=== PATIENT | male | born 1955 | race Caucasian/White ===

== ENCOUNTER → 2017-11-30 | Outpatient (CLI) | payer OTHER | LOC: CLAB 11:34 → EDSTATUS 11:47 → CIMAGING 11:47 | PROVIDERS: ATTEND Family Medicine | DX: M54.5 Low back pain (principal); M51.36 Other intervertebral disc degeneration, lumbar region | CPT/HCPCS: 72100-PO ==

== ENCOUNTER → 2018-01-23 | Outpatient (CLI) | payer OTHER | LOC: FIMAGING 15:40 | PROVIDERS: ATTEND Family Medicine | DX: M51.26 Other intervertebral disc displacement, lumbar region (principal); M48.061 Spinal stenosis, lumbar region without neurogenic claudication ==

== ENCOUNTER 2018-11-16 09:24 | Emergency (ER) | payer OTHER ==
[2018-11-16 09:45] VITALS: BP 130/67
--- NOTE | 2018-11-16 10:06 | EDPHY ---
H & P Stated Complaint: Pt. states urinary frequency,urgency and dysuria with rt flank pain 11/15 Time Seen by Provider: 11/16/18 09:50 HPI/ROS: 63 yo M presents c/o dysuria for 2 days. No fever or chills, no nausea or vomiting. He states he has a hx of kidney stones in his 20s and thinks he may have passed a few last week. No pain at present, yesterday had some right lower back pain, that was very mild. No gross hematuria. Review of systems General no fever no chills no weakness HEENT no eye pain no eye discharge. No eye redness, no sore throat Respiratory no cough, no shortness of breath Cardiac no chest pain, no peripheral edema GI no abdominal pain, no diarrhea, no constipation, no nausea, no vomiting no flank pain, no hematuria, positive dysuria Musculoskeletal no myalgias, no joint pain Heme no easy bruising, no easy bleeding Endo no polyuria, no polydipsia Skin no rashes, no pruritus Neuro no syncope, no dizziness, no headaches Psych is no suicidal ideation, no homicidal ideation Source: Patient Exam Limitations: No limitations - Personal History Current Tetanus Diphtheria and Acellular Pertussis (TDAP): Unsure - Medical/Surgical History Hx Asthma: No Hx Chronic Respiratory Disease: No Hx Diabetes: No Hx Cardiac Disease: No Hx Renal Disease: No Hx Cirrhosis: No Hx Alcoholism: No Hx HIV/AIDS: No Hx Splenectomy or Spleen Trauma: No Other PMH: Med hx-choles,htn,TI-myelonitis. Surg-ryley,ortho(knee and shoulder) - Family History Significant Family History: No pertinent family hx - Social History Smoking Status: Never smoked Alcohol Use: Occasionally Drug Use: None - Physical Exam Exam: 63-year-old male Alert and oriented in no acute distress nontoxic appearance, afebrile Atraumatic normocephalic Neck no JVD Lungs clear to auscultation, no respiratory distress Heart regular rate and rhythm Extremities no cyanosis clubbing edema Constitutional: Initial Vital Signs Temperature (C) 36.8 C 11/16/18 09:35 Heart Rate 77 11/16/18 09:35 Respiratory Rate 16 11/16/18 09:35 Blood Pressure 130/67 H 11/16/18 09:35 O2 Sat (%) 95 11/16/18 09:35 O2 Delivery Mode Room Air Allergies/Adverse Reactions: No Allergies [NKDA] Allergy (Verified 11/16/18 09:32) Home Medications: Medication Instructions Recorded SIMVASTATIN 02/20/10 Cephalexin 500 mg PO TID #21 tablet 11/16/18 Chlorthalidone 11/16/18 Losartan Potassium 11/16/18 Phenazopyridine HCl [Pyridium] 200 mg PO TID #6 tab 11/16/18 Vitamin D2 11/16/18 Medical Decision Making ED Course/Re-evaluation: Patient seen and evaluated for dysuria Physical exam benign Urine dip positive leukocytes Microscopic urine positive for RBCs positive for WBCs, negative epithelial cells Urine culture pending Impression Urinary tract infection Plan Cephalexin three times daily times this 7 days Phenazopyridine three times daily x2 days Follow-up primary care Differential Diagnosis: Differential diagnosis considered but not limited to: Urethritis, prostatitis, urinary tract infection, pyelonephritis - Data Points Laboratory Results: 11/16/18 09:48 Urine RBC 50-182 /hpf H /hpf (0-3) Urine WBC 50-182 /hpf H /hpf (0-3) Ur Epithelial Cells NONE SEEN /lpf /lpf (NONE-1+) Urine Mucus TRACE /lpf /lpf (NONE-1+) Point of Care Test Results: Urine Dip Collection Date 11/16/18 Collection Time 09:48 Specific [place] (1.002-1.030) 1.030 PH (5.0-7.5) 5.5 Leukocytes (Negative) 1+ Nitrites (Negative) Negative Protein (Negative) 1+ Glucose (Negative) Negative Ketones (Negative) Negative Urobilnogen (0.2-1.0 EU) 0.2 Bilirubin (Negative) Negative Blood (Negative) 1+ Departure - Departure Disposition: Home, Routine, Self-Care Clinical Impression: Urinary tract infection Condition: Good Instructions: Cephalexin (By mouth), Phenazopyridine (By mouth), Urinary Tract Infection in Men (ED) Referrals: Isaias Torres DO [Primary Care Provider] - As per Instructions Prescriptions: Cephalexin 500 mg PO TID #21 tablet Phenazopyridine HCl [Pyridium] 200 mg PO TID #6 tab
== END 2018-11-16 10:22 | disposition home or self-care (01) ==
LOC: CED 09:24
DX: N39.0 Urinary tract infection, site not specified (principal)
CPT/HCPCS: 99284-ER